=== PATIENT | female | born 2000 | race Caucasian/White ===

== ENCOUNTER 2025-08-31 10:30 | Outpatient (RCR) | payer OTHER, SELFPAY ==
[2025-08-16 12:05] VITALS: BMI 31.6
[2025-08-16 12:06] VITALS: BP 90/58; PULSE 60; TEMP 36.5
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
--- NOTE | 2025-08-18 12:34 | HO.PHP ---
[facility] admin, Martha informed the team that Ivy had contacted her stating that she is having a bad panic attack and is trying to get to the program. Martha noted that she wanted to come into program and Martha had reminded her of the cut off time of being 9:30 AM to attend program. Ivy voiced that she really needs suspport. Ivy expressed that she is safe. Martha asked [facility] clinicianEli to reach out to Ivy for further support. [facility] staff member was receptive.
--- NOTE | 2025-08-18 12:37 | HO.PHP ---
[facility] staff member reached out to Ivy to follow up with her. Ivy appeared to be calm over the phone, in which she expressed she took her Lamotrigen but is thinking about taking another one of her PRN's because she still is a little anxious. PHP staff member assessed what caused the panic attack, in which she noted that she has been struggling with flashbacks and was having a difficult time with getting her child ready to go to school and it was causing her to be late. PHP explored what coping skills that she utilized to help with reducing her anxiety. Ivy noted that she has been driving around and that has helped. PHP staff member assessed for any safety concerns. Ivy reported having some thoughts of SI (doesn't want to live) without a plan or intent. Ivy voiced that her child is what stops her from acting on any negative thoughts. PHP staff member was receptive and asked Ivy if she would be in attendance to program tomorrow. Ivy said that she would be. PHP staff member was receptive.
--- NOTE | 2025-08-18 15:14 | HO.PHP ---
Client's case was opened and reviewed in teams.
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
--- NOTE | 2025-08-25 15:01 | HO.PHP ---
Ivy completed the 7 daily questions today in group 3 but pt did not turn in her paper with the answers so this film writer contacted Ivy by phone to inquire of her answers. Pt stated she still feels very bad , pt was tearful, reported SI and negative thoughts, denied a plan and intent but stated she wishes she were smart enough to think of a plan. Pt was tearful, and angry, angrily yelled her situation sucked , that [facility] is not helping, stated she comes home and feels the same way, yelled what's the point! . Ivy stated she has to go to work everyday while also being at [facility]. Feels she never gets a break. Pt was silent and crying in between angry statements. Attempts by film writer to supports Ivy were met with further frustrations, when asked about her medication stated Meds aren't going to pay my F'''ing bills! , pt apologized for using profanity and getting upset but then resumed with angry frustrated statements. Ivy was encouraged to continue at [facility] so staff can continue to try to locate more resources and/or supports for her and so she can meet with [facility] provider again and address her medications which pt reports are not helping. Data Sciences Director attempted to explain how medication may help ease her current intense emotions, making it a little easier to cope with her stressors and manage responsibilities, Ivy did not reply. When reminded by film writer of a goal she set in group, Ivy stated I need that now! , angrily stating she never has time to work on herself. Data Sciences Director attempted to ask if she would consider respite level of care but pt stated again don't worry I'm not going to kill myself then hung up. This conversation was reported to [facility] staff and providers.
--- NOTE | 2025-08-25 15:35 | HO.PHP ---
Addendum entered by Eli Spence [facility] 08/26/25 06:29: [facility] staff member also informed Ivy if her thoughts intensify to go to the local ED or contact crisis. Ivy was not receptive to that and said what is the point, it all goes back to them suggesting to call [facility]. PHP staff noted that they can help her if she is feeling unsafe, which she replied that she was safe and doesn't have any plan or intent. PHP staff member was receptive. Original Note: [facility] staff member followed up with Ivy due to her speaking to a staff member at an earlier time, in which she appeared dysregulated and was reporting SI without a plan or intent. Ivy was still tearful when this clinician spoke with her but was calmer during this interaction. Ivy shared that she doesn't know how to pay her rent for this month or next month. Ivy disclosed that she put her one year old on the lease thinking it would make things better but it did not, it only caused her rent to increase. [facility] staff member was receptive and provided her with [facility] due to them being able to support with finances. Ivy stated she already tried to do that and they told her to figure it out. [facility] staff member engaged in active listening and support. [facility] staff member asked Ivy if she is having SI thoughts. Ivy voiced that she is having thoughts without a plan or intent. Ivy expressed she would never act on her thoughts. Ivy noted that her 16 year old brother was there with her. [facility] staff member was receptive. Ivy disclosed that she will be in attendance to program tomorrow.
--- NOTE | 2025-08-26 12:05 | HO.PHPPROGNO ---
Subjective Subjective Date of Service: 08/26/25 Reason For Visit: PTSD Interim History: Mood has been very emotional .. up and down very irritable, depressed, anxious but feels she has reasons due to stressors (lloking for a new job, rent going up) Took gabapentin for sleep, too sedating felt it into the morning feeling more foggy than usual. Denies any thoughts of harming self or others. Sleep inconsistent but is trying melatonin for sleep. Medication Compliance: Yes Side effects from medications: No Attending Groups: Yes Review of Systems Acute medical concerns: No Mental Status Exam Mental Status Exam Narrative: Alert, oriented, in no acute distress. Calm, cooperative. Mood anxious, depressed, irritable, affect constricted. Speech normal. Thought process linear, coherent, ruminative. Thought content related to stressors, denies any helplessness, hopelessness or SI.? No aggressive ideation or HI. No paranoia or delusional content elicited. No evidence of psychosis. Insight and judgment fair-good. Diagnostics Vital Signs (24Hr): BMI result Body Mass Index 31.6 Assessment & Plan Assessment & Plan (1) MDD (major depressive disorder), recurrent episode, severe: Status: Acute Code(s): F33.2 - Major depressive disorder, recurrent severe without psychotic features (2) Eating disorder: Status: Acute Code(s): F50.9 - Eating disorder, unspecified (3) THALIA (generalized anxiety disorder): Status: Acute Code(s): F41.1 - Generalized anxiety disorder (4) Attention-deficit hyperactivity disorder, unspecified type: Status: Acute Code(s): F90.9 - Attention-deficit hyperactivity disorder, unspecified type (5) PTSD (post-traumatic stress disorder): Status: Acute Code(s): F43.10 - Post-traumatic stress disorder, unspecified (6) Other specified persistent mood disorders: Status: Acute Code(s): F34.89 - Other specified persistent mood disorders Plan Continue PHP increase Abilify to 7 mg qd increase Lamictal 150 mg qd discont gabapentin 300 mg qhs prn sleep continue regular medications: lorazepam, discont propranolol doesn ttake Routine lab work as indicated EKG, routine for baseline QTc for medication considerations as indicated UDS as indicated VS reviewed on admission: afebrile, BP 90/58;?60 bpm Continue to monitor Patient educated on: diagnosis, medication risk/benefits and substance abuse Informed Consent: understands Reason for contiued partial hosp. stay Substantial Risk for: med/psych decompensation Certification I certify that partial hospital treatment is medically necessary due to the symptoms and problems resulting from the patient's mental illness and the failure to treat the patient at the partial hospital level of care would likely result in the patient requiring inpatient psychiatric care which could not be prevented at a less intensive level of care. Total time managing care of this patient today __30__ minutes. 30 Discharge Plan Discharge Attending provider: Huma Herrera Additional Instructions: New PCP appointment at [facility] at [facility]. on December 16, 2025 at 9:00 am. Office number #[phone] Medications: New aripiprazole 2 mg tablet 2 mg PO BEDTIME Qty: 30 0RF atomoxetine 25 mg capsule 50 mg PO DAILY Qty: 30 0RF Continued lorazepam 1 mg tablet 1 mg PO DAILY PRN (Reason: Anxiety) lamotrigine [Lamictal] 100 mg tablet See Rx Instructions .ROUTE .COMPLEX Rx Instructions: Take 1 tablet by mouth once a day TAKE ONE TABLE ONCE A DAY FOR 2 WEEKS, THEN INCREASE TO TWO TABLETS A DAY aripiprazole [Abilify] 5 mg tablet 5 mg PO DAILY Discontinued trazodone 50 mg tablet 25 - 50 mg PO BEDTIME PRN (Reason: insomnia) Rx Instructions: TAKE 1/2 TO 1 TABLET TOLERATED AT BEDTIME FOR SLEEP propranolol 10 mg tablet See Rx Instructions .ROUTE .COMPLEX Rx Instructions: Patient stated she is not taking this medication secondary to lightheadedness/dizziness. BP 90/58 P 60. Stand Alone Forms: Patient Portal Discharge page Patient Education: Mood Disorders (ED), Mood Disorders (DC), ADHD in Adults (ED), ADHD in Adults (DC), PTSD (Post Traumatic Stress Disorder) (ED), PTSD (Post Traumatic Stress Disorder) (DC) Print Language: Citizen [place]
--- NOTE | 2025-08-26 13:50 | HO.PHP ---
PHP staff member placed a referral for OP therapy to [facility] and we are waiting on a phone call from them with the appointment date and time.
--- NOTE | 2025-08-30 11:56 | PC.NURSE ---
Patient has a new PCP appointment at [facility] at [facility]. on December 16, 2025 at 9:00 am. Office number #[phone].
--- NOTE | 2025-08-31 14:21 | P.PNPSP_ITS ---
Subjective Subjective Date of Service: 08/30/25 Reason For Visit: PTSD Interim History: Patient seen for follow-up, anticipating discharge at the end of program today.? I'm my own toddler Switched ABilify to AM and is currently taking 5 mg and [id number] and Lamictal at 6pm. SHe is sleeping better and low dose Abilify is helpful with obsessive rumination, irritability in the evening. Mood is stabilizing, denies any h/h/SI but stress tolerance still a struggle and feels she unravel easily hoping to address her long standing ADHD issues. Patient would like to move ahead with starting on Strattera since she did not have a chance to discuss at the end of the week. She has tried WEllbutrin and Adderall in the past and did not like these. Aggravating her anxiety, irritability. Reports no acute issues or concerns. Medication compliant, medications well- tolerated. Denies any adverse effects.? Denies thoughts of harming self or others at this time. Irritablity improved, denies any aggressive ideation or HI. Denies any paranoia or AH or VH. Sleep, appetite, energy stable. Medication Compliance: Yes Side effects from medications: No Attending Groups: Yes Review of Systems Acute medical concerns: No Mental Status Exam Mental Status Exam Narrative: Alert, oriented, in no acute distress. Calm, cooperative. Mood stable, affect appropriate. Speech normal. Thought process linear, coherent, more goal- directed. Thought content related to stressors, future-oriented, denies any helplessness, hopelessness or SI.? No aggressive ideation or HI. No paranoia or delusional content elicited. No evidence of psychosis. Insight and judgment fair-good. Diagnostics Vital Signs (24Hr): BMI result Body Mass Index 31.6 Assessment & Plan Assessment & Plan (1) MDD (major depressive disorder), recurrent episode, severe: Status: Acute Code(s): F33.2 - Major depressive disorder, recurrent severe without psychotic features (2) Eating disorder: Status: Acute Code(s): F50.9 - Eating disorder, unspecified (3) THALIA (generalized anxiety disorder): Status: Acute Code(s): F41.1 - Generalized anxiety disorder (4) Attention-deficit hyperactivity disorder, unspecified type: Status: Acute Code(s): F90.9 - Attention-deficit hyperactivity disorder, unspecified type (5) PTSD (post-traumatic stress disorder): Status: Acute Code(s): F43.10 - Post-traumatic stress disorder, unspecified (6) Other specified persistent mood disorders: Status: Acute Code(s): F34.89 - Other specified persistent mood disorders Plan Discharge from [facility] Continue regular medications? Refills sent to pharmacy Will defer further medication management to outpatient provider *Safety plan reviewed *Discharge diagnoses, treatment course, discharge plan have been reviewed with patient (including medication regime, medication management, potential side effects) as well as treatment rationale were also revisited *Discharge paperwork signed and given to patient, copy sent for scanning to chart Patient educated on: diagnosis and medication risk/benefits Informed Consent: understands Reason for contiued partial hosp. stay Substantial Risk for: stable for discharge Certification I certify that partial hospital treatment is medically necessary due to the symptoms and problems resulting from the patient's mental illness and the failure to treat the patient at the partial hospital level of care would likely result in the patient requiring inpatient psychiatric care which could not be prevented at a less intensive level of care. Total time managing care of this patient today __30__ minutes. Discharge Plan Discharge Attending provider: Huma Herrera Additional Instructions: New PCP appointment at [facility]. on December 16, 2025 at 9:00 am. Office number #[phone] Medications: New aripiprazole 2 mg tablet 2 mg PO BEDTIME Qty: 30 0RF atomoxetine 25 mg capsule 50 mg PO DAILY Qty: 30 0RF Continued lorazepam 1 mg tablet 1 mg PO DAILY PRN (Reason: Anxiety) lamotrigine [Lamictal] 100 mg tablet See Rx Instructions .ROUTE .COMPLEX Rx Instructions: Take 1 tablet by mouth once a day TAKE ONE TABLE ONCE A DAY FOR 2 WEEKS, THEN INCREASE TO TWO TABLETS A DAY aripiprazole [Abilify] 5 mg tablet 5 mg PO DAILY Discontinued trazodone 50 mg tablet 25 - 50 mg PO BEDTIME PRN (Reason: insomnia) Rx Instructions: TAKE 1/2 TO 1 TABLET TOLERATED AT BEDTIME FOR SLEEP propranolol 10 mg tablet See Rx Instructions .ROUTE .COMPLEX Rx Instructions: Patient stated she is not taking this medication secondary to lightheadedne ss/dizziness. BP 90/58 P 60. Stand Alone Forms: Patient Portal Discharge page Patient Education: Mood Disorders (ED), Mood Disorders (DC), ADHD in Adults (ED), ADHD in Adults (DC), PTSD (Post Traumatic Stress Disorder) (ED), PTSD (Post Traumatic Stress Disorder) (DC) Print Language: [place]
== END 2025-08-31 23:59 | disposition home or self-care (01) ==
LOC: HO.PHPA 10:30
PROVIDERS: Visit Provider Psychiatry & Neurology Psychiatry
DX: F33.2 Major depressive disorder, recurrent severe without psychotic features (principal); F50.9 Eating disorder, unspecified; F41.1 Generalized anxiety disorder; F90.9 Attention-deficit hyperactivity disorder, unspecified type; F43.10 Post-traumatic stress disorder, unspecified; F34.89 Other specified persistent mood disorders; Z62.810 Personal history of physical and sexual abuse in childhood; Z79.899 Other long term (current) drug therapy
CPT/HCPCS: 90791; 90853

== ENCOUNTER → 2025-08-31 10:30 | Outpatient (BNV) | payer OTHER, SELFPAY | PROVIDERS: Visit Provider Psychiatry & Neurology Psychiatry | DX: F33.2 Major depressive disorder, recurrent severe without psychotic features (principal); F50.9 Eating disorder, unspecified; F41.1 Generalized anxiety disorder; F90.9 Attention-deficit hyperactivity disorder, unspecified type; F43.10 Post-traumatic stress disorder, unspecified; F34.89 Other specified persistent mood disorders | CPT/HCPCS: 99499 ==